=== PATIENT | male | born 1980 | race Caucasian/White ===

== ENCOUNTER 2020-03-12 09:12 | Outpatient (REF) | payer OTHER, SELFPAY ==
[2020-03-12 10:45] LABS: Baso%MD 0.4 %; Eos%MD 2.5 %; Hematocrit 47.5 % (42-52); Hemoglobin 15.5 g/dl (14.0-18.0); IG%MD 0.6 %; Lymph%MD 26.8 %; Mean Corpuscular HGB Conc 32.6 g/dl (31.0-36.0); Mean Corpuscular Hemoglobin 28.9 pg (27.0-33.0); Mean Corpuscular Volume 88.6 fL (80-98); Mean Platelet Volume 11.7 fL (9.4-12.4); Mono%MD 6.4 %; Neut%MD 63.3 %; Platelet Count 219 X10*3/uL (160-400); Red Blood Count 5.36 X10*6/uL (4.60-5.80); Red Cell Distribution Width 12.4 % (11.0-16.0); White Blood Count 10.1 X10*3/uL (4.8-10.8)
[2020-03-12 11:58] LABS: Alanine Aminotransferase 29 U/L (0-40); Albumin Level 4.5 g/dL (3.5-5.0); Alkaline Phosphatase 52 U/L (39-117); Anion Gap 12 (12-20); Aspartate Amino Transferase 17 U/L (5-37); Bilirubin Total 0.4 mg/dL (0.0-1.0); Blood Urea Nitrogen 14 mg/dL (9-16); Calcium 9.5 mg/dL (8.4-10.2); Carbon Dioxide 29 mmol/L (22-29); Chloride 103 mmol/L (96-108); Cholesterol 177 mg/dL; Estimated Glomerular Filt Rate > 60; Glucose Fasting 106 mg/dL (60-99); HDL Cholesterol 36 mg/dL; LDL Cholesterol Calculated 124 mg/dl; Potassium 4.8 mmol/l (3.3-5.1); Sodium 139 mmol/L (135-145); Total Protein 7.3 g/dL (6.5-8.0); Triglycerides 85 mg/dL
[2020-03-12 14:47] LABS: Eosinophils Absolute Manual 0.2 X10*3/UL (0.0-0.8); Eosinophils Percent Manual 2 % (0-4); Lymphocytes Absolute Manual 2.6 X10*3/uL (0.6-4.8); Lymphocytes Percent Manual 26 % (20-40); Monocytes Absolute Manual 0.6 X10*3/uL (0.0-1.2); Monocytes Percent Manual 6 % (2-11); Neutrophils Percent Manual 66 % (45-73)
[2020-03-12 14:48] LABS: Band Neutrophils Percent 0 % (3-5); Neutrophils Absolute Manual 6.7 X10*3/uL (2.2-7.9)
[2020-03-12 14:49] LABS: RBC Morphology NOTED
[2020-03-12 14:50] LABS: Burr Cells 2+; Platelet Estimate NORMAL (NORMAL); Platelet Morphology Comment NORMAL; Tear Drop Cells 3+
[2020-03-12 14:51] LABS: Schistocytes 1+
== END 2020-03-12 09:13 | disposition home or self-care (01) ==
LOC: HO.LAB 09:12
PROVIDERS: PCP Internal Medicine; Visit Provider Internal Medicine
DX: K92.1 Melena (principal); I10 Essential (primary) hypertension
CPT/HCPCS: 36415; 80053; 80061; 85007; 85027

== ENCOUNTER 2022-01-28 08:47 | Outpatient (REF) | payer OTHER, SELFPAY ==
[2022-01-28 08:57] LABS: MANUAL DIFF FLAG NO
[2022-01-28 09:15] LABS: Basophils Percent Auto 0.4 % (0-2); Eosinophils Absolute Auto 0.4 X10*3/uL (0.0-0.4); Eosinophils Percent Auto 3.8 % (0-4); Hematocrit 46.3 % (42.0-52.0); Hemoglobin 15.3 g/dl (14.0-18.0); Imm Gran Abs Auto 0.03 X10*3/uL (0.00-0.03); Imm Gran Pct Auto 0.3 % (0.0-0.4); Lymphocytes Absolute Auto 2.8 X10*3/uL (1.2-4.9); Lymphocytes Percent Auto 29.9 % (20-40); Mean Corpuscular Hemoglobin 28.5 pg (27.0-33.0); Mean Corpuscular Volume 86.4 fL (80.0-98.0); Mean Platelet Volume 10.9 fL (9.4-12.4); Monocytes Absolute Auto 0.6 X10*3/uL (0.1-1.2); Monocytes Percent Auto 6.5 % (2-11); Neutrophils Absolute Auto 5.5 x10*3/uL (2.0-8.3); Neutrophils Percent Auto 59.1 % (45-73); Platelet Count 218 X10*3/uL (160-400); Red Blood Count 5.36 X10*6/uL (4.60-5.80); Red Cell Distribution Width 12.4 % (11.0-16.0); White Blood Count 9.4 X10*3/uL (4.8-10.8)
[2022-01-28 09:43] LABS: Alanine Aminotransferase 34 U/L (0-40); Albumin Level 4.6 g/dL (3.5-5.0); Alkaline Phosphatase 52 U/L (39-117); Anion Gap 15 (12-20); Aspartate Amino Transferase 20 U/L (5-37); Bilirubin Total 0.5 mg/dL (0.0-1.0); Blood Urea Nitrogen 14 mg/dL (9-16); Calcium 9.8 mg/dL (8.4-10.2); Carbon Dioxide 27 mmol/L (22-29); Chloride 104 mmol/L (96-108); Cholesterol 185 mg/dL; Estimated Glomerular Filt Rate > 60; Glucose Random 113 mg/dL (60-115); HDL Cholesterol 36 mg/dL; LDL Cholesterol Calculated 124 mg/dl; Sodium 141 mmol/L (135-145); Total Protein 7.4 g/dL (6.5-8.0); Triglycerides 126 mg/dL
[2022-02-01 16:12] LABS: Testosterone, Free 72.3 pg/mL (35.0-155.0); Testosterone, Total 273 ng/dL (250-1100)
== END 2022-01-28 08:48 | disposition home or self-care (01) ==
LOC: HO.LAB 08:47
PROVIDERS: PCP Internal Medicine; Visit Provider Internal Medicine
DX: K92.1 Melena (principal); E78.5 Hyperlipidemia, unspecified; I10 Essential (primary) hypertension; N52.9 Male erectile dysfunction, unspecified; D64.9 Anemia, unspecified
CPT/HCPCS: 36415; 80053; 80061; 84402; 84403; 85025

== ENCOUNTER 2024-02-23 13:57 | Outpatient (AMB) | payer OTHER, SELFPAY ==
[2024-02-23 14:32] VITALS: BP 156/100; BMI 37.0
--- NOTE | 2024-02-23 14:32 | A.OFFPC_ITS ---
Vital Signs 02/23/24 14:32 02/23/24 15:15 Height 5 ft 10 in Weight 258 lb BMI 37.0 BP 156/100 H 150/90 H Blood Pressure Location Lt brachial Lt brachial Position Sitting Sitting Intake Visit Reasons: annual exam Intake Note: Patient here for an Annual Physical Exam Consumer Insight Analyst Required: No Accompanied by: Self / Same As Patient Allergies No Known Allergies Allergy (Verified 02/23/24 14:56) Medication List - Last Reconciled 02/23/24 by Mehreen Vasquez MD blood pressure monitor As directed lisinopril 10 mg PO DAILY 90 days Tobacco use date assessed: 02/23/24 Dental Screening Dental Screen Date: 02/23/24 Did you have a dental visit in the last 12 months?: Yes Did you have a dental problem in the last 6 months where you did not have access to dental care?: No Was dental information given to patient?: Patient has dentist HPI HPI Comments History of Present Illness Details This is a 43-year-old male that comes for his physical exam accompanied by . He will be refer through open access for colonoscopy. He is obese with a BMI of 37 and has had intentionally lost weight about 20 lb with diet and 30 minutes of exercise 5 days a week. Has elevated blood pressure but has stopped taking lisinopril for few months. Was advised to restarted today and start low-salt diet. Blood pressure will be recheck in 3 weeks by nurse navigator. For his weight I will start him on wegovy. Side effects such as nausea, vomiting, abdominal pain, diarrhea, pancreatitis and thyroid nodules were advised. [facility] Medical History (Updated 02/23/24 @ 15:19 by Mehreen Vasquez MD) Bloody stools Essential hypertension Surgical History Hx of knee surgery History of repair of rotator cuff History of incision and drainage History of appendectomy Family History Mother No problems noted. Father Diabetes Prostate cancer Maternal Grandmother Colon cancer Brother No problems noted. Sister No problems noted. Son No problems noted. Son No problems noted. Daughter No problems noted. Social History (Updated 02/23/24 @ 15:01 by Mehreen Vasquez MD) Housing: House Alcohol intake: current Alcohol intake frequency: holidays/special occasions only Alcohol type: beer and hard liquor Patient Tobacco Use Status: Former Tobacco user Tobacco use type: Cigarette e-Cigarette/Vaping Use: Never Used Second Hand Smoke Exposure: Yes service: No Current occupational status: employed Current occupational exposures/hazards: No Cognitive needs: No Hearing needs: No Vision needs: No Questionnaire PHQ-9 Over the last 2 weeks, how often have you been bothered by any of the following problems? 1. Little interest or pleasure in doing things: not at all 2. Feeling down, depressed, or hopeless: not at all 3. Trouble falling or staying asleep, or sleeping too much: not at all 4. Feeling tired or having little energy: not at all 5. Poor appetite or overeating: not at all 6. Feeling bad about yourself - or that you are a failure or have let yourself or your family down: not at all 7. Trouble concentrating on things, such as reading the newspaper or watching television: not at all 8. Moving or speaking so slowly that other people could have noticed. Or the opposite - being so fidgety or restless that you have been moving around a lot more than usual: not at all 9. Thoughts that you would be better off or of hurting yourself in some way: not at all Total score: 0 Depression Screening Interpretation: Negative Depression Screening Done: Yes 81533 - PHQ-9 Billing: Yes Source: Developed by Drs. Dawood Craft, Sadie Conteh, Corby Robb and colleagues, with an educational latanya from [employer]. Thrive Questionnaire Date Thrive assessed: 02/23/24 I am a: Patient What is your living situation today?: I have a steady place to live Within the past 12 months, did the food you bought not last and you didn't have the money to get more?: Sometimes True Within the past 12 months, did you worry whether your food would run out before you got money to buy more?: Sometimes True Do you have trouble paying for medicines?: I choose not to answer this question Do you have trouble getting transportation to medical appointments?: No Do you have trouble paying your heating and electricity bill?: I choose not to answer this question Do you have trouble taking care of your child, family member or friend?: No Do you have trouble with day-to-day activities such as bathing, preparing meals, shopping, managing finances, etc.?: No Are you currently unemployed and looking for a job?: No Are you interested in more education?: No Please select the resources that you would like help with: None Currently or been in a relationship where the following occur: No concerns reported THRIVE Score: 2 AUDIT C Alcohol Use Questionnaire (AUDIT-C) 1. How often do you have a drink containing alcohol?: Monthly or less 2. How many drinks containing alcohol do you have on a typical day when you are drinking?: 1 or 2 3. How often do you have six or more drinks on one occasion?: Less than monthly Total Score: 2 Score Reviewed/Action Taken: Yes ERIKA-7 AMB Questionnaire ERIKA-7 Date ERIKA - 7 assessed: 02/23/24 Feeling nervous, anxious, or on edge: 0 = Not at all Not being able to stop or control worryin = Not at all Worrying too much about different things: 0 = Not at all Trouble relaxin = Not at all Being so restless that it is hard to sit still: 0 = Not at all Becoming easily annoyed or irritable: 0 = Not at all Feeling afraid as if something awful might happen: 0 = Not at all Total ERIKA-7 score (0-4 normal; 5-9 mild; 10-14 moderate; 15-21 severe): 0 Source: Developed by Drs. Dawood Craft, Sadie Conteh, Corby Robb and colleagues, with an educational latanya from [employer]. ERIKA-7 Assessment Billing ERIKA-7 Assessment Tool: ERIKA-7 Assessment 32668 Review of Systems Const All systems reviewed & are unremarkable except as noted in HPI and below Card Denies chest pain at rest, Denies chest pain with activity, Denies edema, Denies irregular heart rhythm, Denies claudication, Denies dyspnea, Denies dyspnea on exertion, Denies orthopnea, Denies paroxysmal nocturnal dyspnea and Denies slow heart rate Resp Denies cough, Denies dyspnea and Denies dyspnea on exertion GI Denies abdominal pain, Denies change in bowel habits, Denies excessive flatus, Denies nausea and Denies vomiting Physical exam (Primary Care) Vital Signs: Last Vital Signs BP 156/100 H 02/23/24 14:32 Care Plan Goal for BP management: Restart lisinopril. Blood pressure goal is equal or less than 130/80. Advised low-salt diet. Next steps: Recheck blood pressure with nurse navigator in 3 weeks. BMI result Body Mass Index 37.0 BMI Assessment/Plan discussion: High BMI High, discussed plan: lifestyle, weight reduction, dietary and physical activity Tobacco/Smoking Status: Tobacco use Status Tobacco use date assessed 02/23/24 02/23/24 14:36 Patient Tobacco Use Status Former Tobacco user 02/23/24 14:36 Tobacco use type Cigarette 02/23/24 14:36 e-Cigarette/Vaping Use Never Used 02/23/24 14:36 PHQ-9: PHQ-9 Score PHQ-9: Total score 0 02/23/24 14:36 Depression Screening Interpretation: Negative Thrive Assessment: Date of Thrive Assessment Date Thrive assessed 02/23/24 02/23/24 14:36 Currently or been in a relationship where the following occur: No concerns reported HENMT Head: Yes normal to inspection, Yes normocephalic and Yes atraumatic Ears: external ears normal Eyes General: appearance normal, both eyes and all related structures Eyelids: Yes eyelids normal Conjunctivae: conjunctivae normal Neck Neck: Yes normal visual inspection and Yes supple Resp Effort & Inspection: normal respiratory effort Auscultation: clear to auscultation bilaterally Cardio Jugular venous distension: no JVD Rate: regular rate Rhythm: regular rhythm Heart sounds: S1 normal heart sound present and S2 normal heart sound present GI Inspection: Yes normal to inspection Palpation (GI): Soft to palpation and nontender Auscultation: normal bowel sounds Skin General skin exam: no rashes or lesions noted Neuro General: no focal motor deficits Extrem General: Yes full ROM Psych Appearance: grossly normal Office Procedures Flu Questionnaire Does the patient have a severe egg allergy?: No Immunizations Fluarix Triv [id number] (PF) 45 mcg (15 mcg x 3)/0.5 mL IM syringe Performing Provider: Mehreen Vasquez MD [facility] [facility] Documented (not given) by: MITCHEL Navarro on 02/23/24 14:38 Reason Not Given: Patient Refused Coding Level of Care Code Est Pt Level 3 (90508) Est Pt Prev Care 40-64y(02233) Diagnoses Physical exam Z00.00 Class 2 severe obesity due to excess calories with serious comorbidity and body mass index (BMI) of 37.0 to 37.9 in adult E66.812; E66.01; Z68.37 Obesity type: due to excess calories Serious obesity comorbidity presence: with serious comorbidity Additional Codes PHQ-9 - 36745 - PHQ-9 Billing: Yes ([id number]) ERIKA-7 Assessment Billing - ERIKA-7 Assessment Tool: ERIKA-7 Assessment 23592 ([id number]) Time Spent (min) 34 Assessment & Plan Assessment & Plan (1) Physical exam: Comment: UTD dental. Due for dental. Code(s): Z00.00 - Encounter for general adult medical examination without abnormal findings Category: Medical Plan: Repeat in a year. (2) Class 2 obesity with body mass index (BMI) of 37.0 to 37.9 in adult: Code(s): E66.812 - Obesity, class 2; Z68.37 - Body mass index [BMI] 37.0-37.9, adult Category: Medical Qualifiers: Obesity type: due to excess calories Serious obesity comorbidity presence: with serious comorbidity Qualified Code(s): E66.812 - Obesity, class 2; E66.01 - Morbid (severe) obesity due to excess calories; Z68.37 - Body mass index [BMI] 37.0-37.9, adult Plan: Start WEgovy. Continue diet and exercise. Was advised to increase his protein intake. BMI goal is less than 30. Orders: Orders Lipid Panel Today Z00.00 - Encounter for general adult medical examination without abnormal findings [facility] [place]. Panel Fast Today Z00.00 - Encounter for general adult medical examination without abnormal findings Influenza [id number] Immunization Today Z23 - Encounter for immunization Referrals Open Access Screening Colonoscopy Referral Z12.12 - Encounter for screening for malignant neoplasm of rectum Medications: New semaglutide (weight loss) (Wegovy) administer weeks 1 through 4 of therapy 0.25 mg (0.5 mL) subcut QWEEK 4 weeks 2 mL 0RF E66.812 - Obesity, class 2, I10 - Essential (primary) hypertension, Z68.37 - Body mass index [BMI] 37.0-37.9, adult
[2024-02-23 15:15] VITALS: BP 150/90
== END 2024-02-23 15:16 | disposition home or self-care (01) ==
LOC: HO.HMCH 13:58
PROVIDERS: PCP Internal Medicine; Visit Provider Internal Medicine
DX: Z00.00 Encounter for general adult medical examination without abnormal findings (principal); E66.01 Morbid (severe) obesity due to excess calories; Z68.37 Body mass index [BMI] 37.0-37.9, adult; Z23 Encounter for immunization

== ENCOUNTER → 2024-02-23 13:57 | Outpatient (BNVA) | payer OTHER, SELFPAY | PROVIDERS: PCP Internal Medicine; Visit Provider Internal Medicine | DX: Z00.00 Encounter for general adult medical examination without abnormal findings (principal); E66.812 Obesity, class 2; E66.01 Morbid (severe) obesity due to excess calories; Z68.37 Body mass index [BMI] 37.0-37.9, adult; Z28.21 Immunization not carried out because of patient refusal | CPT/HCPCS: 96127 ==

== ENCOUNTER 2024-03-07 10:23 | Outpatient (REF) | payer OTHER, SELFPAY ==
[2024-03-07 12:45] LABS: Alanine Aminotransferase 24 U/L (0-40); Albumin Level 4.4 g/dL (3.5-5.0); Alkaline Phosphatase 38 U/L (39-117); Anion Gap 8 (12-20); Aspartate Amino Transferase 20 U/L (5-37); Bilirubin Total 0.5 mg/dL (0.0-1.0); Blood Urea Nitrogen 14 mg/dL (9-16); Calcium 9.2 mg/dL (8.4-10.2); Carbon Dioxide 28 mmol/L (22-29); Chloride 109 mmol/L (96-108); Cholesterol 168 mg/dL (<200); Estimated Glomerular Filt Rate > 60; Glucose Fasting 101 mg/dL (60-99); HDL Cholesterol 35 mg/dL (>40); LDL Cholesterol Calculated 120 mg/dL (<100); Potassium 4.1 mmol/L (3.3-5.1); Sodium 141 mmol/L (135-145); Total Protein 7.2 g/dL (6.5-8.0); Triglycerides 67 mg/dL (<150)
== END 2024-03-07 10:24 | disposition home or self-care (01) ==
LOC: HO.LAB 10:23
PROVIDERS: PCP Internal Medicine; Visit Provider Internal Medicine
DX: Z00.00 Encounter for general adult medical examination without abnormal findings (principal)
CPT/HCPCS: 36415; 80053; 80061

== ENCOUNTER → 2024-03-10 15:47 | Outpatient (BNVA) | payer OTHER, SELFPAY | PROVIDERS: PCP Internal Medicine ==

== ENCOUNTER 2024-06-07 16:32 | Outpatient (AMB) | payer OTHER, SELFPAY ==
--- NOTE | 2024-06-07 16:39 | A.OFFPC_ITS ---
Vital Signs 06/07/24 16:40 Height 5 ft 10 in Weight 254 lb BMI 36.4 BP 130/82 Blood Pressure Location Lt brachial Position Sitting Intake Visit Reasons: bp Intake Note: Patient here for a follow up BP Loading Checker Required: No Accompanied by: Spouse Allergies No Known Allergies Allergy (Verified 06/07/24 16:46) Medication List - Last Reconciled 06/07/24 by Mehreen Vasquez MD blood pressure monitor As directed lisinopril 10 mg PO DAILY 90 days Tobacco use date assessed: 06/07/24 Dental Screening Dental Screen Date: 06/07/24 Did you have a dental visit in the last 12 months?: Yes Did you have a dental problem in the last 6 months where you did not have access to dental care?: No Was dental information given to patient?: Patient has dentist HPI HPI Comments History of Present Illness Details The patient is a 43-year-old male presenting with a chronic condition of essential hypertension diagnosed previously. He is currently managing his condition with Lisinopril 10 mg once daily. The patient reports that his blood pressure is well-controlled. He denies using salt or sugar in his diet and is currently trialing a non-specified protein supplement from [employer] to observe its effect on his blood pressure. The patient previously engaged in smoking but has since ceased this habit. His alcohol consumption is social, approximately once a month, mainly consuming liquor. He expressed ongoing interest in weight management and is considering alternative therapies for weight loss; however, he notes past challenges with insurance coverage for such medications. An interest in medications like Wegovy, along with experiences with discounted purchase options, was voiced alongside an attempt to undertake a healthier diet, albeit without structured physical exercise. [facility] Medical History (Updated 06/07/24 @ 19:58 by Mehreen Vasquez MD) Bloody stools Essential hypertension Surgical History Hx of knee surgery History of repair of rotator cuff History of incision and drainage History of appendectomy Family History Mother No problems noted. Father Diabetes Prostate cancer Maternal Grandmother Colon cancer Brother No problems noted. Sister No problems noted. Son No problems noted. Son No problems noted. Daughter No problems noted. Social History Housing: House Alcohol intake: current Alcohol intake frequency: holidays/special occasions only Alcohol type: beer and hard liquor Patient Tobacco Use Status: Former Tobacco user Tobacco use type: Cigarette e-Cigarette/Vaping Use: Never Used Second Hand Smoke Exposure: Yes service: No Current occupational status: employed Current occupational exposures/hazards: No Cognitive needs: No Hearing needs: No Vision needs: No Questionnaire PHQ-9 Over the last 2 weeks, how often have you been bothered by any of the following problems? 1. Little interest or pleasure in doing things: not at all 2. Feeling down, depressed, or hopeless: not at all 3. Trouble falling or staying asleep, or sleeping too much: not at all 4. Feeling tired or having little energy: not at all 5. Poor appetite or overeating: not at all 6. Feeling bad about yourself - or that you are a failure or have let yourself or your family down: not at all 7. Trouble concentrating on things, such as reading the newspaper or watching television: not at all 8. Moving or speaking so slowly that other people could have noticed. Or the opposite - being so fidgety or restless that you have been moving around a lot more than usual: not at all 9. Thoughts that you would be better off or of hurting yourself in some way: not at all Total score: 0 Depression Screening Interpretation: Negative Depression Screening Done: Yes 50723 - PHQ-9 Billing: Yes Source: Developed by Drs. Dawood Craft, Sadie Conteh, Corby Robb and colleagues, with an educational latanya from [employer]. Thrive Questionnaire Date Thrive assessed: 06/07/24 I am a: Patient What is your living situation today?: I have a steady place to live Within the past 12 months, did the food you bought not last and you didn't have the money to get more?: Sometimes True Within the past 12 months, did you worry whether your food would run out before you got money to buy more?: Sometimes True Do you have trouble paying for medicines?: I choose not to answer this question Do you have trouble getting transportation to medical appointments?: No Do you have trouble paying your heating and electricity bill?: I choose not to answer this question Do you have trouble taking care of your child, family member or friend?: No Do you have trouble with day-to-day activities such as bathing, preparing meals, shopping, managing finances, etc.?: No Are you currently unemployed and looking for a job?: No Are you interested in more education?: No Please select the resources that you would like help with: None Currently or been in a relationship where the following occur: No concerns reported THRIVE Score: 2 AUDIT C Alcohol Use Questionnaire (AUDIT-C) 1. How often do you have a drink containing alcohol?: Monthly or less 2. How many drinks containing alcohol do you have on a typical day when you are drinking?: 1 or 2 3. How often do you have six or more drinks on one occasion?: Never Total Score: 1 Score Reviewed/Action Taken: No ERIKA-7 AMB Questionnaire ERIKA-7 Date ERIKA - 7 assessed: 06/07/24 Feeling nervous, anxious, or on edge: 0 = Not at all Not being able to stop or control worryin = Not at all Worrying too much about different things: 0 = Not at all Trouble relaxin = Not at all Being so restless that it is hard to sit still: 0 = Not at all Becoming easily annoyed or irritable: 0 = Not at all Feeling afraid as if something awful might happen: 0 = Not at all Total ERIKA-7 score (0-4 normal; 5-9 mild; 10-14 moderate; 15-21 severe): 0 Source: Developed by Drs. Dawood Craft, Sadie Conteh, Corby Robb and colleagues, with an educational latanya from [employer]. ERIKA-7 Assessment Billing ERIKA-7 Assessment Tool: ERIKA-7 Assessment 96109 Review of Systems Const All systems reviewed & are unremarkable except as noted in HPI and below Card Denies chest pain at rest, Denies chest pain with activity, Denies edema, Denies irregular heart rhythm, Denies claudication, Denies dyspnea, Denies dyspnea on exertion, Denies orthopnea, Denies paroxysmal nocturnal dyspnea and Denies slow heart rate Resp Denies cough, Denies dyspnea and Denies dyspnea on exertion GI Denies abdominal pain, Denies change in bowel habits, Denies excessive flatus, Denies nausea and Denies vomiting Physical exam (Primary Care) Vital Signs: Last Vital Signs BP 130/82 06/07/24 16:40 BMI result Body Mass Index 36.4 BMI Assessment/Plan discussion: High BMI High, discussed plan: lifestyle, weight reduction, dietary and physical activity Tobacco/Smoking Status: Tobacco use Status Tobacco use date assessed 06/07/24 06/07/24 16:45 Patient Tobacco Use Status Former Tobacco user 06/07/24 16:43 Tobacco use type Cigarette 06/07/24 16:43 e-Cigarette/Vaping Use Never Used 06/07/24 16:43 PHQ-9: PHQ-9 Score PHQ-9: Total score 0 06/07/24 16:47 Depression Screening Interpretation: Negative Thrive Assessment: Date of Thrive Assessment Date Thrive assessed 06/07/24 06/07/24 16:43 Currently or been in a relationship where the following occur: No concerns reported Resp Effort & Inspection: normal respiratory effort Auscultation: clear to auscultation bilaterally Cardio Jugular venous distension: no JVD Rate: regular rate Rhythm: regular rhythm Heart sounds: S1 normal heart sound present and S2 normal heart sound present Extrem General: Yes full ROM Coding Level of Care Code Est Pt Level 3 (90533) Complex EM visit Add On G2211 Diagnoses Essential hypertension I10 Class 2 obesity with body mass index (BMI) of 36.0 to 36.9 in adult E66.812; Z68.36 Additional Codes ERIKA-7 Assessment Billing - ERIKA-7 Assessment Tool: ERIKA-7 Assessment 64187 ([id number]) PHQ-9 - 05813 - PHQ-9 Billing: Yes ([id number]) Time Spent (min) 19 Assessment & Plan Assessment & Plan (1) Essential hypertension: Code(s): I10 - Essential (primary) hypertension Category: Medical (2) Class 2 obesity with body mass index (BMI) of 36.0 to 36.9 in adult: Code(s): E66.812 - Obesity, class 2; Z68.36 - Body mass index [BMI] 36.0-36.9, adult Category: Medical Plan - Continue Lisinopril 10 mg daily for hypertension management. - Encourage reduction of salt and sugar intake in the diet. - Consider additional weight management strategies, including potential use of GLP-1 agonists for weight control, understanding the insurance limitations and alternative means to obtain these medications. - Re-evaluate colonoscopy scheduling as previous appointment was not completed. Patient was informed and verbally consented to the use of an ambient scribe for clinic note documentation during this visit. During the visit, we discussed the patient's current medication regimen for essential hypertension with Lisinopril, and its successful control of his blood pressure. I highlighted the importance of continuing dietary restrictions, particularly with salt and sugar, to maintain his current control of hypertension. We explored weight management options, including GLP-1 agonists like Wegovy and the challenges regarding insurance coverage. I suggested alternative resources, such as wellness centers and online telehealth services, as means of accessing these medications more affordably. The patient was reminded of the importance of a colonoscopy and agreed to have the scheduling checked as he had not been contacted for the follow-up. Patient Instructions: - Continue taking Lisinopril 10 mg daily as prescribed. - Maintain low salt and sugar intake. - Explore opportunities for affordable weight management medications if desired. - Increase physical activity as tolerated to aid in weight loss efforts. - Follow up on colonoscopy scheduling with provided medical contacts.
[2024-06-07 16:40] VITALS: BP 130/82; BMI 36.4
== END 2024-06-07 17:01 | disposition home or self-care (01) ==
PROVIDERS: PCP Internal Medicine; Visit Provider Internal Medicine
DX: I10 Essential (primary) hypertension (principal); E66.812 Obesity, class 2; Z68.36 Body mass index [BMI] 36.0-36.9, adult

== ENCOUNTER → 2024-06-07 16:32 | Outpatient (BNVA) | payer OTHER, SELFPAY | PROVIDERS: PCP Internal Medicine; Visit Provider Internal Medicine | DX: I10 Essential (primary) hypertension (principal); E66.812 Obesity, class 2; Z68.36 Body mass index [BMI] 36.0-36.9, adult; Z79.899 Other long term (current) drug therapy | CPT/HCPCS: 96127 ==

== ENCOUNTER 2025-03-14 15:00 | Outpatient (AMB) | payer OTHER, SELFPAY ==
[2025-03-14 15:05] VITALS: BP 150/98; PULSE 90; TEMP 36.2; O2SAT 96; BMI 38.3
--- NOTE | 2025-03-14 15:05 | MHC.PC.OV ---
Vital Signs 03/14/25 15:05 Height 5 ft 10 in Weight 267 lb BMI 38.3 BP 150/98 H Blood Pressure Location Lt brachial Position Sitting Pulse 90 Pulse Source Pulse Oximeter Temp 97.1 F Temp Source Temporal Artery Scan Pulse Oximetry (%) 96 Oxygen Delivery Method Room Air Intake Visit Reasons: Back pain Analysis Reporting Developer Required: No Accompanied by: Self / Same As Patient Allergies No Known Allergies Allergy (Verified 03/14/25 15:26) Medication List - Last Reconciled 03/14/25 by Mehreen Vasquez MD blood pressure monitor As directed lisinopril 10 mg PO DAILY 90 days Tobacco use date assessed: 03/14/25 Dental Screening Dental Screen Date: 03/14/25 Did you have a dental visit in the last 12 months?: Yes Did you have a dental problem in the last 6 months where you did not have access to dental care?: No Was dental information given to patient?: Patient has dentist HPI HPI Comments History of Present Illness Details The patient is a 44 year old individual presenting with back pain. 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 The pain is localized to the back and does not radiate to the legs, and there is no associated numbness. No fever, bowel or bladder incontinence. Takes ibuprofen with mild relief. He also has hypertension and did not took his lisinopril today and this is why he is elevated. Also complains of rectal bleeding that happens occasionally and was refer in the past for colonoscopy but did not proceed due to being busy. He also complains of erectile dysfunction and would like to see Urology. [facility] Medical History (Updated 03/14/25 @ 15:42 by Mehreen Vasquez MD) Bloody stools Essential hypertension Surgical History Hx of knee surgery History of repair of rotator cuff History of incision and drainage History of appendectomy Family History Mother No problems noted. Father Diabetes Prostate cancer Maternal Grandmother Colon cancer Brother No problems noted. Sister No problems noted. Son No problems noted. Son No problems noted. Daughter No problems noted. Social History Housing: House Alcohol intake: current Alcohol intake frequency: holidays/special occasions only Alcohol type: beer and hard liquor Patient Tobacco Use Status: Former Tobacco user Tobacco use type: Cigarette e-Cigarette/Vaping Use: Never Used Second Hand Smoke Exposure: Yes service: No Current occupational status: employed Current occupational exposures/hazards: No Cognitive needs: No Hearing needs: No Vision needs: No Questionnaire PHQ-9 Over the last 2 weeks, how often have you been bothered by any of the following problems? 1. Little interest or pleasure in doing things: not at all 2. Feeling down, depressed, or hopeless: not at all 3. Trouble falling or staying asleep, or sleeping too much: not at all 4. Feeling tired or having little energy: not at all 5. Poor appetite or overeating: not at all 6. Feeling bad about yourself - or that you are a failure or have let yourself or your family down: not at all 7. Trouble concentrating on things, such as reading the newspaper or watching television: not at all 8. Moving or speaking so slowly that other people could have noticed. Or the opposite - being so fidgety or restless that you have been moving around a lot more than usual: not at all 9. Thoughts that you would be better off or of hurting yourself in some way: not at all Total score: 0 Depression Screening Interpretation: Negative Depression Screening Done: Yes 06172 - PHQ-9 Billing: Yes Source: Developed by Drs. Dawood Craft, Sadie Conteh, Corby Robb and colleagues, with an educational latanya from [employer]. Thrive Questionnaire Date Thrive assessed: 06/07/24 I am a: Patient What is your living situation today?: I have a steady place to live Within the past 12 months, did the food you bought not last and you didn't have the money to get more?: Never true Within the past 12 months, did you worry whether your food would run out before you got money to buy more?: Never true Do you have trouble paying for medicines?: No Do you have trouble getting transportation to medical appointments?: No Do you have trouble paying your heating and electricity bill?: No Do you have trouble taking care of your child, family member or friend?: No Do you have trouble with day-to-day activities such as bathing, preparing meals, shopping, managing finances, etc.?: No Are you currently unemployed and looking for a job?: No Are you interested in more education?: No Please select the resources that you would like help with: None Currently or been in a relationship where the following occur: No concerns reported and I choose not to answer THRIVE Score: 0 AUDIT C Alcohol Use Questionnaire (AUDIT-C) 1. How often do you have a drink containing alcohol?: Monthly or less 2. How many drinks containing alcohol do you have on a typical day when you are drinking?: 1 or 2 3. How often do you have six or more drinks on one occasion?: Less than monthly Total Score: 2 Score Reviewed/Action Taken: No ERIKA-7 AMB Questionnaire ERIKA-7 Date ERIKA - 7 assessed: 06/07/24 Feeling nervous, anxious, or on edge: 0 = Not at all Not being able to stop or control worryin = Not at all Worrying too much about different things: 0 = Not at all Trouble relaxin = Not at all Being so restless that it is hard to sit still: 0 = Not at all Becoming easily annoyed or irritable: 0 = Not at all Feeling afraid as if something awful might happen: 0 = Not at all Total ERIKA-7 score (0-4 normal; 5-9 mild; 10-14 moderate; 15-21 severe): 0 Source: Developed by Drs. Dawood Craft, Sadie Conteh, Corby Robb and colleagues, with an educational latanya from [employer]. ERIKA-7 Assessment Billing ERIKA-7 Assessment Tool: ERIKA-7 Assessment 56128 Review of Systems Const All systems reviewed & are unremarkable except as noted in HPI and below Card Denies chest pain at rest, Denies chest pain with activity, Denies edema, Denies irregular heart rhythm, Denies claudication, Denies dyspnea, Denies dyspnea on exertion, Denies orthopnea, Denies paroxysmal nocturnal dyspnea and Denies slow heart rate Resp Denies cough, Denies dyspnea and Denies dyspnea on exertion GI Denies abdominal pain, Denies change in bowel habits, Denies excessive flatus, Denies nausea and Denies vomiting Physical exam (Primary Care) Vital Signs: Last Vital Signs Temp 97.1 F 03/14/25 15:05 Pulse 90 03/14/25 15:05 BP 150/98 H 03/14/25 15:05 Pulse Ox 96 03/14/25 15:05 Oxygen Delivery Method Room Air 03/14/25 15:05 BMI result Body Mass Index 38.3 BMI Assessment/Plan discussion: High BMI High, discussed plan: lifestyle, weight reduction, dietary and physical activity Tobacco/Smoking Status: Tobacco use Status Tobacco use date assessed 03/14/25 03/14/25 15:09 Patient Tobacco Use Status Former Tobacco user 03/14/25 15:09 Tobacco use type Cigarette 03/14/25 15:09 e-Cigarette/Vaping Use Never Used 03/14/25 15:09 PHQ-9: PHQ-9 Score PHQ-9: Total score 0 03/14/25 15:29 Depression Screening Interpretation: Negative Thrive Assessment: Date of Thrive Assessment Date Thrive assessed 06/07/24 03/14/25 15:09 Currently or been in a relationship where the following occur: No concerns reported and I choose not to answer Resp Effort & Inspection: normal respiratory effort Auscultation: clear to auscultation bilaterally Cardio Jugular venous distension: no JVD Rate: regular rate Rhythm: regular rhythm Heart sounds: S1 normal heart sound present and S2 normal heart sound present Extrem General: Yes full ROM Coding Level of Care Code Est Pt Level 4 (98191) Diagnoses Essential hypertension I10 Bloody stools K92.1 Erectile dysfunction N52.9 Lumbar pain M54.50 Additional Codes ERIKA-7 Assessment Billing - ERIKA-7 Assessment Tool: ERIKA-7 Assessment 85532 ([id number]) PHQ-9 - 72201 - PHQ-9 Billing: Yes ([id number]) Time Spent (min) 20 Assessment & Plan Assessment & Plan (1) Essential hypertension: Code(s): I10 - Essential (primary) hypertension Category: Medical (2) Bloody stools: Code(s): K92.1 - Melena Category: Medical (3) Erectile dysfunction: Code(s): N52.9 - Male erectile dysfunction, unspecified Category: Medical (4) Lumbar pain: Code(s): M54.50 - Low back pain, unspecified Category: Medical Plan Plan 1. Lumbar pain The patient's back pain is localized and does not radiate, suggesting a muscular origin without nerve involvement. The plan is to prescribe a stronger analgesic, a muscle relaxant, and a lidocaine patch for localized relief. The patient was counseled that the muscle relaxant can cause drowsiness. 2. Rectal bleeding The patient has not completed a previously recommended colonoscopy. A referral will be sent again to gastroenterology for this screening. 3. Erectile dysfunction A referral to a urologist will be made for examination. 4. Hypertension Be compliant with lisinopril. Blood pressure goal is equal or less than 130/80. Orders: Referrals Urology Referral N52.9 - Male erectile dysfunction, unspecified Gastroenterology Referral K62.5 - Hemorrhage of anus and rectum Medications: New cyclobenzaprine 10 mg PO BEDTIME PRN 30 tabs 0RF muscle spasm 30 days ketorolac maximum total duration of 5 days from all oral, intranasal, or parenteral formulations 10 mg PO Q8H PRN 90 tabs 0RF pain 30 days lidocaine 5% leave on most painful area for up to 12 hrs 1 patch topical DAILY PRN 30 ea 0RF pain (scale score 7-10) 30 days
== END 2025-03-14 15:40 | disposition home or self-care (01) ==
LOC: HO.HMCH 15:01
PROVIDERS: PCP Internal Medicine; Visit Provider Internal Medicine
DX: I10 Essential (primary) hypertension (principal); K92.1 Melena; N52.9 Male erectile dysfunction, unspecified; M54.50 Low back pain, unspecified

== ENCOUNTER → 2025-03-14 15:00 | Outpatient (BNVA) | payer OTHER, SELFPAY | PROVIDERS: PCP Internal Medicine; Visit Provider Internal Medicine | DX: I10 Essential (primary) hypertension (principal); N52.9 Male erectile dysfunction, unspecified; M54.50 Low back pain, unspecified; K62.5 Hemorrhage of anus and rectum | CPT/HCPCS: 96127 ==